=== PATIENT | male | born 1955 | race Caucasian/White ===

== ENCOUNTER 2017-01-17 14:50 | Observation (INO) | payer BC ==
[2017-01-17] MEDS ORDERED: Non-Formulary Medication 1 Each (Ondansetron Hcl 8 MG) PO PRN (19:07)
[2017-01-17] MEDS ORDERED: Montelukast 10 MG Tab PO PRN (19:07)
[2017-01-17] MEDS ORDERED: ACETAMINOPHEN PO PRN ×2 (19:14→20:32)
[2017-01-17] MEDS ORDERED: HYDROCODONE PO PRN (19:14)
[2017-01-17] MEDS ORDERED: fentaNYL 75 MCG/HR Transdermal Patch TOP SCH (19:15)
[2017-01-17] MEDS ORDERED: oxyCODONE 5 MG Tab PO PRN ×2 (19:43→20:32)
[2017-01-17] MEDS ORDERED: ASPIRIN PO PRN (20:32)
[2017-01-17] MEDS ORDERED: Promethazine 25 MG Tab PO PRN (20:32)
[2017-01-17] MEDS ORDERED: CAFFEINE PO PRN (20:32)
[2017-01-17] MEDS ORDERED: Zolpidem 5 MG Tab PO PRN (20:32)
[2017-01-17] MEDS ORDERED: DIPHENHYDRAMINE MM SCH (21:00)
[2017-01-17] MEDS ORDERED: NYSTATIN MM SCH (21:00)
[2017-01-17] MEDS ORDERED: Sulfamethoxazole/Trimethoprim 800-160 MG Tab PO SCH (21:00)
[2017-01-17] MEDS ORDERED: LIDOCAINE MM SCH (21:00)
[2017-01-17] MEDS ORDERED: Ciprofloxacin 500 MG Tab PO SCH (21:00)
[2017-01-17] MEDS ORDERED: oxyCODONE ER 10 MG TAB.ER PO SCH (21:00)
[2017-01-17] MEDS ORDERED: Acetaminophen 325 MG Tab PO PRN (21:33)
[2017-01-17] MEDS: oxyCODONE ER 10 MG TAB.ER PO SCH (21:41)
[2017-01-17] MEDS: Metoprolol Tartrate 25 MG Tab PO SCH (21:41)
[2017-01-17] MEDS: Ferrous Gluconate 324 MG Tab PO SCH (21:42)
[2017-01-18] MEDS: Sodium Chloride 0.9% 1,000 ML IV SCH ×2 (00:10→07:37)
[2017-01-18] MEDS ORDERED: oxyCODONE ER 10 MG TAB.ER PO SCH (08:00)
[2017-01-18] MEDS: Metoprolol Tartrate 25 MG Tab PO SCH (08:16)
[2017-01-18] MEDS: oxyCODONE ER 10 MG TAB.ER PO SCH ×2 (08:17→17:15)
[2017-01-18] MEDS ORDERED: Multivitamins with Minerals/Iron/Folic Acid/Lycopene Tab PO SCH (09:00)
[2017-01-18] MEDS ORDERED: amLODIPine 5 MG Tab PO SCH (09:00)
[2017-01-18] MEDS: Ferrous Gluconate 324 MG Tab PO SCH (10:10)
[2017-01-18] MEDS ORDERED: Ferrous Sulfate 325 MG Tab PO SCH (10:20)
[2017-01-18] MEDS ORDERED: Sodium Chloride 0.9% 1,000 ML IV SCH (12:00)
[2017-01-18 20:34] VITALS: BP 132/70
--- NOTE | 2017-01-19 08:28 | DISCH ---
DISCHARGE NOTE This is a 61-year-old gentleman who was admitted to the hospital because of severe anemia. The patient was given blood transfusions after being admitted to the hospital. It was felt that the cause of the anemia was iron deficiency. His last hemoglobin performed on the 01/18/2017 close to 10 p.m. was 8.6. The patient is very anxious to go home. His vital signs have remained stable. We will discharge him this evening. He will come back to the clinic tomorrow morning to have his blood checked again. /[id number]/MODL
== END 2017-01-18 22:05 | disposition home or self-care (01) ==
LOC: KA.MS 16:33
PROVIDERS: ADMIT Physician Assistant; ATTEND Family Medicine
DX: D50.0 Iron deficiency anemia secondary to blood loss (chronic) (principal); J45.909 Unspecified asthma, uncomplicated; K21.9 Gastro-esophageal reflux disease without esophagitis; E66.9 Obesity, unspecified; Z93.3 Colostomy status; Z79.899 Other long term (current) drug therapy; Z79.82 Long term (current) use of aspirin; Z88.1 Allergy status to other antibiotic agents; Z88.8 Allergy status to other drugs, medicaments and biological substances
CPT/HCPCS: 36415; 36430; 85018; 85025; 86850; 86900; 86901; 86920; 86922; 96360; 96361; A9270; G0378; G0379; J7030; P9016

== ENCOUNTER 2023-01-10 11:21 | Emergency (ER) | payer BC, MEDICARE ==
[2023-01-10] MEDS ORDERED: Sodium Chloride 0.9% 10 ML Syringe FLUSH PRN (11:22)
[2023-01-10] MEDS: Sodium Chloride 0.9% 1,000 ML IV ONE (11:34)
[2023-01-10] MEDS: HYDROmorphone 1 MG/ML Syringe IVPUSH ONE ×3 (11:34→13:21)
[2023-01-10] MEDS: Ondansetron 4 MG/2 ML SDV IVPUSH ONE (11:34)
[2023-01-10 12:03] LABS: ANION GAP 15.8 mmol/L (5-15)
[2023-01-10] MEDS: Iopamidol 755 Mg/ML 100 ML Bottle IV ONE (12:05)
[2023-01-10] MEDS: Sodium Chloride 0.9% 50 ML IV SCH (12:05)
[2023-01-10] MEDS: Sodium Chloride 0.9% 1,000 ML ONE (12:53)
[2023-01-10] MEDS: NS with KCl 40mEq 1,000 ML IV SCH (12:56)
[2023-01-10] MEDS: Morphine Solution 10 MG/5 ML UD Cup PO ONE (14:24)
[2023-01-10 16:37] VITALS: BP 138/65; PULSE 91
== END 2023-01-10 16:30 | disposition home or self-care (01) ==
LOC: KA.ED 11:21
DX: K94.19 Other complications of enterostomy (principal); G89.28 Other chronic postprocedural pain; R10.84 Generalized abdominal pain; I10 Essential (primary) hypertension; Z88.1 Allergy status to other antibiotic agents; Z88.8 Allergy status to other drugs, medicaments and biological substances; Z79.899 Other long term (current) drug therapy
CPT/HCPCS: 36415; 71045; 74177; 80053; 81001; 82150; 83605; 83735; 83880; 84132; 84484; 85025; 93010; 96361; 96374; 96375; 96376; 99284; 99284-25; A9270-GY; J1170; J2405; J3480; J3490; J7030; Q9967

== ENCOUNTER 2023-10-28 12:40 | Emergency (ER) | payer MEDICARE ==
[2023-10-28 13:09] LABS: BASOPHILS ABSOLUTE AUTO 0.04 10^3/uL (0.00-0.10); BASOPHILS PERCENT AUTO 0.7 % (0.0-1.0); EOSINOPHILS ABSOLUTE AUTO 0.45 10^3/uL (0.10-0.30); EOSINOPHILS PERCENT AUTO 7.6 % (1.0-3.0); HEMOGLOBIN 11.3 g/dL (13.0-17.0); IMMATURE GRAN ABSOLUTE AUTO 0.01 10^3/uL (0.00-0.50); IMMATURE GRAN PERCENT AUTO 0.2 % (0.0-5.0); LYMPHOCYTES ABSOLUTE AUTO 0.81 10^3/uL (1.00-4.00); LYMPHOCYTES PERCENT AUTO 13.8 % (20.0-40.0); MEAN CORPUSCULAR HEMOGLOBIN 31.3 pg (27.0-31.0); MEAN CORPUSCULAR HGB CONC 33.2 g/dL (32.0-36.0); MEAN CORPUSCULAR VOLUME 94.2 fL (82.0-92.0); MONOCYTES ABSOLUTE AUTO 0.77 10^3/uL (0.10-0.80); MONOCYTES PERCENT AUTO 13.1 % (2.0-8.0); NEUTROPHILS ABSOLUTE AUTO 3.81 10^3/uL (2.50-7.00); NEUTROPHILS PERCENT AUTO 64.6 % (50.0-70.0); PLATELET COUNT,PLT 151 10^3/uL (150-400); RED BLOOD CELL COUNT 3.61 10^6/uL (4.50-6.00); RED CELL DISTRIBUTION WIDTH 15.4 % (11.5-14.5); WHITE BLOOD CELL COUNT,WBC 5.89 10^3/uL (5.00-10.00)
[2023-10-28 13:27] LABS: ALBUMIN 3.89 g/dL (3.40-5.00); ANION GAP 12.8 mmol/L (5-15); BILIRUBIN TOTAL 0.8 mg/dL (0.2-1.0); CALCIUM 8.3 mg/dL (8.7-10.3); CARBON DIOXIDE,CO2 30.2 mmol/L (21.0-32.0); CREATININE 0.89 mg/dL (0.51-1.17); EST CRCL DRUG DOSING (CG) 78.99 mL/min; PROTEIN TOTAL,TP 7.4 g/dL (6.4-8.2)
[2023-10-28 13:45] LABS: INFLUENZA A NAA NEGATIVE (NEGATIVE); INFLUENZA B NAA NEGATIVE (NEGATIVE); RESPIRATORY SYNCYTIAL VIR NAA NEGATIVE (NEGATIVE)
[2023-10-28 13:46] LABS: CORONAVIRUS COVID-19 NAA NEGATIVE (NEGATIVE)
[2023-10-28 15:12] VITALS: BP 165/94; PULSE 74
== END 2023-10-28 14:21 | disposition home or self-care (01) ==
LOC: KA.ED 12:40
DX: R00.2 Palpitations (principal); I10 Essential (primary) hypertension; D50.9 Iron deficiency anemia, unspecified; K21.9 Gastro-esophageal reflux disease without esophagitis; Z79.899 Other long term (current) drug therapy; Z88.1 Allergy status to other antibiotic agents; Z88.5 Allergy status to narcotic agent
CPT/HCPCS: 0241U; 36415; 71045; 80053; 83880; 84484; 85025; 93005; 93010; 99284; 99285

== ENCOUNTER 2025-05-29 09:15 | Emergency (ER) | payer MEDICARE ==
[2025-05-29 10:43] VITALS: BP 150/86; PULSE 70
== END 2025-05-29 10:36 | disposition home or self-care (01) ==
LOC: KA.ED 09:15
DX: S01.01XA Laceration without foreign body of scalp, initial encounter (principal); S09.90XA Unspecified injury of head, initial encounter; Z79.01 Long term (current) use of anticoagulants; I10 Essential (primary) hypertension; Z88.1 Allergy status to other antibiotic agents; Z88.8 Allergy status to other drugs, medicaments and biological substances; Z79.899 Other long term (current) drug therapy; W01.198A Fall on same level from slipping, tripping and stumbling with subsequent striking against other object, initial encounter
CPT/HCPCS: 12002; 70450; 99283